=== PATIENT | male | born 2000 | race Asian ===

== ENCOUNTER 2023-03-28 20:57 | Emergency (ER) | payer OTHER ==
[~2023-03-28] VITALS: Ht 167.6 cm; Wt 70.5 kg
[2023-03-28] MEDS ORDERED: NS 1,000 ML IV ONE ×2 (21:05)
[2023-03-28 21:34] LABS: BASO % 0.1 % (0.0-1.0); HEMATOCRIT 36.4 % (42.0-52.0); HEMOGLOBIN 12.1 g/dl (13.5-17.5); LYMPH % 9.4 % (24.0-44.0); MEAN CORPUSCULAR HEMOGLOBIN 28.3 pg (27.0-33.0); MEAN CORPUSCULAR HGB CONC 33.2 g/dl (32.0-36.5); MONO # 0.4 10^3/uL (0.0-0.8); MONO % 3.7 % (2.0-8.0); NEUTROPHILS # 9.2 10^3/uL (1.5-8.5); NEUTROPHILS % 86.3 % (36.0-66.0); PLATELET COUNT, AUTOMATED 201 10^3/uL (150-450); RED BLOOD COUNT 4.28 10^6/uL (4.30-6.10); WHITE BLOOD COUNT 10.7 10^3/uL (4.0-10.0)
[2023-03-28 22:02] LABS: ETHYL ALCOHOL (ETHANOL) < 0.003 % (0.000-0.010)
[2023-03-28 22:03] LABS: CK-MB VALUE MASS 5.3 NG/ML (<3.6)
[2023-03-28 22:04] LABS: ALBUMIN 3.9 G/DL (3.2-5.2); ALKALINE PHOSPHATASE 84 U/L (46-116); ALT/SGPT 34 U/L (7.0-40); AST/SGOT 60 U/L (<34); BILIRUBIN,DIRECT 0.3 MG/DL (<0.4); BILIRUBIN,TOTAL 0.9 MG/DL (0.3-1.2); BLOOD UREA NITROGEN 29 MG/DL (9-23); CALCIUM LEVEL 8.8 MG/DL (8.5-10.1); CARBON DIOXIDE LEVEL 17 MMOL/L (20-31); CHLORIDE LEVEL 103 MMOL/L (98-107); GLOMERULAR FILTRATION RATE > 60.0 (>60); GLUCOSE, FASTING 96 MG/DL (60-100); POTASSIUM SERUM 4.7 MMOL/L (3.5-5.1); SALICYLATE LEVEL < 3.0 MG/DL (<30); SODIUM LEVEL 137 MMOL/L (136-145); TOTAL PROTEIN 7.1 G/DL (5.7-8.2)
[2023-03-28 22:08] LABS: THYROID STIMULATING HORMONE 0.398 uIU/ML (0.55-4.78)
[2023-03-28 22:10] LABS: CPK CREATINE PHOSPHOKINASE 937 U/L (46-171); MB/CK RELATIVE INDEX 0.56 (< OR =4)
[2023-03-28 22:17] LABS: AMPHETAMINES LEVEL URINE NEGATIVE (NEGATIVE); BARBITURATES URINE NEGATIVE (NEGATIVE); BENZODIAZEPINES URINE NEGATIVE (NEGATIVE); CANNABINOIDS URINE NEGATIVE (NEGATIVE); COCAINE METABOLITE URINE NEGATIVE (NEGATIVE); METHADONE URINE NEGATIVE (NEGATIVE); OPIATES URINE NEGATIVE (NEGATIVE); PHENCYCLIDINE URINE NEGATIVE (NEGATIVE)
[2023-03-28 23:29] LABS: CK-MB VALUE MASS 7.1 NG/ML (<3.6)
[2023-03-28 23:31] LABS: MB/CK RELATIVE INDEX 0.81 (< OR =4)
[2023-03-29] MEDS ORDERED: NS 1,000 ML IV ONE (01:00)
[2023-03-29 02:11] LABS: BLOOD UREA NITROGEN 23 MG/DL (9-23); CALCIUM LEVEL 6.9 MG/DL (8.5-10.1); CARBON DIOXIDE LEVEL 19 MMOL/L (20-31); CHLORIDE LEVEL 109 MMOL/L (98-107); CREATININE FOR GFR 0.94 MG/DL (0.70-1.30); GLOMERULAR FILTRATION RATE > 60.0 (>60); GLUCOSE, FASTING 84 MG/DL (60-100); POTASSIUM SERUM 4.1 MMOL/L (3.5-5.1); SODIUM LEVEL 139 MMOL/L (136-145)
[2023-03-29] MEDS ORDERED: CALCIUM CARBONATE 500 MG CHEW U/D PO ONE (02:35)
[2023-03-29] MEDS ORDERED: CALC-190 PO (02:36)
[2023-03-29 02:51] VITALS: BP 104/50; TEMP 98.6; O2SAT 99
== END 2023-03-29 03:52 | disposition home or self-care (01) ==
LOC: M ED 20:57
DX: E86.0 Dehydration (principal); R55 Syncope and collapse; E83.51 Hypocalcemia